=== PATIENT | female | born 1945 | race Caucasian/White ===

== ENCOUNTER 2020-07-18 14:08 | Outpatient (CLI) | payer MEDICARE, SELFPAY ==
[2020-07-22 14:37] LABS: FECFAT Total Specimen Weight 415 g; Fecal Lipids, 24 hr 28 g/24 h (<7)
== END 2020-07-18 14:09 | disposition home or self-care (01) ==
DX: K59.1 Functional diarrhea (principal)
CPT/HCPCS: 82710

== ENCOUNTER 2023-04-23 12:07 | Outpatient (CLI) | payer MEDICARE, SELFPAY ==
--- NOTE | ~2023-04-23 | XR_ITS ---
EXAMINATION: XR chest 2V DATE: 04/23/2023 14:02 INDICATION: Encounter for other preprocedural examination. TECHNIQUE: Frontal and lateral views of the chest were obtained. COMPARISON: None. FINDINGS: There is eventration of anterior right hemidiaphragm. There is mild atelectasis at left brett g base. No pneumonia, pleural effusion, or pneumothorax. The heart size is normal. There are bilatera l shoulder arthroplasties. IMPRESSION: 1. Mild atelectasis at left lung base. Reviewed, dictated and finalized at location E.
--- NOTE | 2023-04-23 13:12 | ECG_ITS ---
Measurements Intervals [place] Rate: 54 P: 34 ID: [id number] QRS: -9 QRSD: 114 T: 36 QT: 445 QTc: 425 Interpretive Statements SINUS BRADYCARDIA WITH FIRST DEGREE AV BLOCK MODERATE INTRAVENTRICULAR CONDUCTION DELAY [110+ ms QRS DURATION] MODERATE VOLTAGE CRITERIA FOR LVH, CONSIDER NORMAL VARIANT [MEETS CRITERIA IN ONE OF: R(aVL), S(V1), R(V5), R(V5/V6)+S(V1)] NO PREVIOUS ECG AVAILABLE FOR COMPARISON Electronically Signed On 04-23-2023 15:06:16 CDT by Kal Nash M.D.
[2023-04-23 14:13] LABS: Hematocrit 39.4 % (37.0-47.0); Hemoglobin 12.5 g/dL (12.0-15.0); Mean Corpuscular HGB Conc 31.7 g/dl (32-36); Mean Corpuscular Hemoglobin 28.7 pg (26-34); Mean Corpuscular Volume 90.6 fl (80-100); Mean Platelet Volume 10.4 fl (7.4-10.4); Platelet Count Result 218 k/mm3 (150-375); Red Blood Count 4.35 M/mm3 (4.2-5.4)
[2023-04-23 14:23] LABS: Anion Gap 9 mmol/L (8-16); Blood Urea Nitrogen 31 mg/dL (7-17); Carbon Dioxide 19 mmol/L (22-30); Chloride 112 mmol/L (98-107); Estimated Glomerular Filt Rate 40; Glucose 80 mg/dL (65-110); Sodium 140 mmol/L (137-145)
[2023-04-23 14:24] LABS: Prothrombin Time 13.2 Seconds (11.1-14.7)
[2023-04-23 14:25] LABS: Partial Thromboplastin Time 27.4 SECONDS (22.3-36.8)
[2023-04-23 15:03] LABS: Appearance Urine Cloudy (Clear); Bacteria Urine 4+ /hpf; Bilirubin Urine Negative (Negative); Blood Urine Negative (Negative); Color Urine Yellow (Yellow); Glucose Urine UA Negative (Negative); Ketones Urine Negative (Negative); Leukocyte Esterase Ur 3+ LEU/UL (Negative); Nitrate Urine Positive (Negative); Protein Urine Negative (Negative); Specific Grav Ur 1.016 (1.001-1.035); Squamous Epithelial Cell Urine Occasional /hpf (Few); Urobilinogen Urine 0.2 mg/dL (<2.0); WBC Clumps Urine Present /HPF; WBC Urine >100 /hpf; pH Urine 5.5 (5.0-9.0)
[2023-04-23 15:08] LABS: Add Urine Microscopic? YES
== END 2023-04-23 12:08 | disposition home or self-care (01) ==
LOC: ANHSURGERY 12:55
PROVIDERS: Visit Provider Neurological Surgery
DX: Z01.818 Encounter for other preprocedural examination (principal); M43.16 Spondylolisthesis, lumbar region
CPT/HCPCS: 36415; 71046; 80048; 81001; 85027; 85610; 85730; 86850; 86900; 86901; 87077; 87086; 87186; 93005

== ENCOUNTER 2023-06-05 01:21 | Day surgery (SDC) | payer MEDICARE, SELFPAY ==
--- NOTE | 2023-04-19 08:33 | PC.NURSE ---
Addendum entered by Lilly Swann RN 04/22/23 12:37: ALL VITAMINS AND SUPPLEMENTS (VITAMIN B12 AND D) - LAST DOSE 04/27/23. Original Note: PRE-OP INSTRUCTIONS, PLEASE READ CAREFULLY Report to the Outpatient Waiting Room, entrance under the green pavilion located off [facility], at time _1030_ on date _05/01/23_. Planned Procedure Time: _1230_. Time changes happen often and if your time is changed the preop area will call you the afternoon before. - You and your visitor will be asked to self-screen and do not enter if you have any COVID symptoms. - A mask is optional within the hospital at this time. Patients may have clear liquids (water, carbonated beverages, clear teas, apple juice) until 3 hours prior to surgery (0930 AM) with a maximum of 20 ounces. - No food from midnight until time of surgery Take the following medications with a SIP of water the morning of surgery: _GABAPENTIN, METOPROLOL & TYLENOL IF NEEDED_ DO NOT STOP ANY OF YOUR OTHER PRESCRIPTION MEDICATIONS PRIOR TO SURGERY ?EXCEPT THE FOLLOWING Medications to discontinue _CELECOXIB, IBUPROFEN PER DR. FAJARDO - CALL OFFICE FOR INSTRUCTIONS_ Medications to discontinue per ANESTHESIA - _CHERRY EXTRACT 3 DAYS PRIOR TO SURGERY, Date to take last dose 04/27/23_ Please no make-up, nail beninese, hairspray, perfume, deodorant, or body powder the day of surgery. No jewelry (including any body piercings) or valuables the day of surgery, leave them at home. Please take a shower or bath the night before, or the morning of, surgery with an antibacterial soap. Wear comfortable, loose fitting clothing. - Jewelry must be removed prior to entering the operating room. Rings and piercings that are not removed may be cut off. - The hospital will not accept responsibility for valuables. - Please leave all valuables, including medications, at home the day of surgery. If you are going home after surgery, a licensed semi driver must drive you home. - NO public transportation without another adult if you receive anesthesia. - We recommend that an adult stay with you for 24 hours following discharge. - We also recommend that you do not drive, make important decision, drink alcoholic beverages, or take any drugs that were not prescribed by your health care provider for at least 24 hours after your discharge time. Follow any additional instructions given to you from your surgeon. If you or anyone in your household have experienced Covid symptoms in the past week, please notify your surgeon or the nurse liaison at the phone number below for possible testing. Telephone instructions given to _PATIENT_and asked if any additional questions and then verbalized understanding. Patient advised to call surgeon office or pre surgery nurse liaison [phone] if any additional questions.
[2023-04-19 08:40] VITALS: BMI 38.2
--- NOTE | 2023-05-28 11:15 | PC.NURSE ---
Report to the Outpatient Waiting Room, entrance under the green pavilion located off [facility], at time ___0900____ on date _06/05/23 . Planned Procedure Time: __1100 . Time changes happen often and if your time is changed the preop area will call you the afternoon before. - You and your visitor will be asked to self-screen and do not enter if you have any COVID symptoms. - A mask is optional within the hospital at this time. Patients may have clear liquids (water, carbonated beverages, clear teas, apple juice) until 3 hours prior to surgery with a maximum of 20 ounces. - No food from midnight until time of surgery - Infants may have breast milk until 4 hours before surgery, formula 6 hours prior to surgery. - Children will be allowed to drink immediately following surgery. If applicable, please bring a bottle or sippy cup to assist with drinking. Juice, water, soda, and popsicles are readily available. For infants on formula, please bring formula the day of surgery. Pacifiers are allowed. Take the following medications with a SIP of water the morning of surgery: __GABAPENTIN, METOPROLOL, & TYLENOL IF NEEDED___ DO NOT STOP ANY OF YOUR OTHER PRESCRIPTION MEDICATIONS PRIOR TO SURGERY ?EXCEPT THE FOLLOWING Medications to discontinue per physician _CELECOXIB & IBUPROFEN PER DR. FAJARDO INSTRUCTIONS_ Date to take last dose Please no make-up, nail mexican, hairspray, perfume, deodorant, or body powder the day of surgery. No jewelry (including any body piercings) or valuables the day of surgery, leave them at home. Please take a shower or bath the night before, or the morning of, surgery with an antibacterial soap. Wear comfortable, loose fitting clothing. Children are encouraged to wear pajamas. - Jewelry must be removed prior to entering the operating room. Rings and piercings that are not removed may be cut off. - The hospital will not accept responsibility for valuables. - Please leave all valuables, including medications, at home the day of surgery. If you are going home after surgery, a licensed rolloff driver must drive you home. - NO public transportation without another adult if you receive anesthesia. - We recommend that an adult stay with you for 24 hours following discharge. - We also recommend that you do not drive, make important decision, drink alcoholic beverages, or take any drugs that were not prescribed by your health care provider for at least 24 hours after your discharge time. For Pediatric surgeries, we recommend two adults accompany the child home. Follow any additional instructions given to you from your surgeon. If you or anyone in your household have experienced Covid symptoms in the past week, please notify your surgeon or the nurse liaison at the phone number below for possible testing. Telephone instructions given to ____PT and asked if any additional questions and then verbalized understanding. Patient advised to call surgeon office or pre surgery nurse liaison [phone] if any additional questions.
[2023-05-28 11:17] VITALS: BMI 38.2
[2023-06-05] VITALS (10 sets, daily range): BP systolic 95–148; BP diastolic 57–89; PULSE 57–79; RESP 10–20; TEMP 36.2–36.8; O2SAT 94–100
--- NOTE | ~2023-06-05 | XR_ITS ---
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 TECHNIQUE: 1 fluoroscopic image of the thoracolumbar junction were obtained during laminectomy with s angela cord stimulator placement. I was not present during the procedure. Fluoroscopy exposure time wa s 16.8 seconds. Air Kerma 14.039 mGy. DAP 0.2783 mGym2. COMPARISON: None FINDINGS: Multiple soft tissue anchors project over the image. Stimulator leads project over the midline in the lower thoracic spine. IMPRESSION: Fluoroscopic documentation of laminectomy with spinal cord stimulator placement. Please refer to the operative note for complete procedural details . Reviewed, dictated and finalized at location K. PAINT SHADER IMPRESSION: Fluoroscopic documentation of laminectomy with spinal cord stimulator placement . Please refer to the operative note for complete procedural details .
[2023-06-05] MEDS: LACTATED RINGERS 1,000 ML 30 ML IV CONT ×2 (10:15→14:27)
--- NOTE | 2023-06-05 11:30 | WPDANESEPPF ---
Anes - Initial Pre Proc Eval Procedure: Operation Date: 06/05/23 11:00 Proposed Procedures p T9 Laminectomy with Placement of Spinal Cord Stimulator and Generator - Bibi Neri MD Date/Time: 06/05/23 11:30 Surgeon: Bibi Neri MD Pre Op Diagnosis: lumbar spondylosis, chronic back pain Patient Data Age: 78 Gender: F Height: 1.65 m Weight: 102.3 kg Last Vital Signs Temp 98.2 F 06/05/23 09:20 Pulse 79 06/05/23 09:20 Resp 20 06/05/23 09:20 BP 146/89 H 06/05/23 09:20 Pulse Ox 100 06/05/23 09:20 O2 Del Method Room Air 06/05/23 09:20 Allergies Allergy/AdvReac Type Severity Reaction Status Date / Time No Known Allergies Allergy Verified 06/05/23 09:58 Home Medications Medication Instructions Recorded Confirmed Type celecoxib 100 mg capsule 200 mg PO DAILY 04/04/23 06/05/23 History cholecalciferol (vitamin D3) 50 50 mcg PO DAILY 04/04/23 06/05/23 History mcg (2,000 unit) capsule colestipol 1 gram tablet 7 g PO BID 04/04/23 06/05/23 History hydrochlorothiazide 12.5 mg tablet 12.5 mg PO DAILY 04/04/23 06/05/23 History mecobalamin (vitamin B12) 1,000 1,000 mcg PO DAILY 04/04/23 06/05/23 History mcg chewable tablet metoprolol tartrate 50 mg tablet 50 mg PO BID 04/04/23 06/05/23 History solifenacin 10 mg tablet 10 mg PO DAILY 04/04/23 06/05/23 History sour thakkar extract 1,000 mg 1,200 mg PO DAILY 04/04/23 06/05/23 History capsule (Tart Thakkar Extract) acetaminophen 650 mg 1,300 mg PO Q8H PRN Pain 04/19/23 06/05/23 History tablet,extended release atorvastatin 40 mg tablet 80 mg DAILY 04/19/23 06/05/23 History benazepril 40 mg tablet 40 mg DAILY 04/19/23 06/05/23 History gabapentin 600 mg tablet 600 mg DAILY 04/19/23 06/05/23 History ibuprofen 200 mg tablet 400 mg Q8H PRN Pain 04/19/23 06/05/23 History Laboratory Tests 06/05/23 10:23 Blood Type A Positive Antibody Screen Pending Patient hx anesthesia problems: none Family hx anesthesia problems: none Results Review: All pre-operative results and documents have been reviewed as part of the pre-operative evaluation. [facility] Past Medical History Medical History (Updated 04/04/23 @ 15:37 by Bibi Neri MD) Chronic low back pain Surgical History Surgical History (Updated 04/04/23 @ 15:02 by Radha Kruse MA) H/O bladder repair surgery (~02/2010) H/O cataract extraction (~2009) H/O hernia repair (~07/09/99) H/O shoulder surgery (~05/08/04) L History of left hip replacement (~11/27/12) History of left shoulder replacement (~02/17/13) History of right knee joint replacement (~05/03/15) History of right shoulder replacement (~07/28/13) Social History Social History (Updated 04/04/23 @ 15:03 by Radha Kruse MA) Smoking status: Never smoker Second hand tobacco smoke exposure: No Alcohol intake: never Substance use: never Substance use type: does not use Lack of Transportation: No Lack of Food: Never True Current Housing: I Have Housing Concerned About Future Housing: No Difficulty Paying Gas/Electric Bills: No Difficulty Paying for Meds: No Currently Unemployed: No Education: High School Diploma/GED Difficulty w/ Childcare or Family Care: No Living arrangements: alone Spiritual care concerns: No Anes - Eval Final PreProcedure Day of Procedure 06/05/23 11:30 Patient weight: obese Heart: regular rate and rhythm Lungs: clear to auscultation Airway: Mallampati scale class II Neurological: alert and oriented Last oral intake: >/= 8 hours ASA classification: III Emergent: no Anesthetic plan: proceed Anesthesia type and monitoring: general ETT and standard monitoring Results Review: All pre-operative results and documents have been reviewed as part of the pre-operative evaluation. Informed Consent: The patient's anesthetic plan and its attendant risks and benefits were discussed with the patient/family/POA. Question
--- NOTE | 2023-06-05 11:40 | PM.IMHP ---
H&P: HPI History of Present Illness Date/Time: 06/05/23 11:40 Chief Complaint: back pain Narrative: Ms. Abarca is a 78-year-old female history of hypertension who was referred by [facility] for spinal cord stimulator placement.? She has a several year history of right-sided low back pain which is present with standing and walking.? She has no significant pain at rest.? She has had a number of treatments over the years including multiple epidural steroid and facet injections which have not provided any long-lasting relief.? She was offered surgery in the past which she declined to pursue.? During the years of her getting epidural steroid injections, she has developed some pain down the front of her legs, worse on the right side, to about the ankle.? She can get some paresthesias in her legs as well.? She denies any weakness.? She recently had a [employer]tr[employer] spinal cord stimulator trial from which she reports is 60-70% improvement in her symptoms.? Of note, she has a bladder stimulator with the generator on the left side. Review of Systems Review of Systems: All systems reviewed & are unremarkable except as noted in HPI and below PMFSH Past Medical History Medical History (Updated 04/04/23 @ 15:37 by Bibi Neri MD) Chronic low back pain Surgical History Surgical History (Updated 04/04/23 @ 15:02 by Radha Kruse MA) H/O bladder repair surgery (~02/2010) H/O cataract extraction (~2009) H/O hernia repair (~07/09/99) H/O shoulder surgery (~05/08/04) L History of left hip replacement (~11/27/12) History of left shoulder replacement (~02/17/13) History of right knee joint replacement (~05/03/15) History of right shoulder replacement (~07/28/13) Social History Social History (Updated 04/04/23 @ 15:03 by Radha Kruse MA) Smoking status: Never smoker Second hand tobacco smoke exposure: No Alcohol intake: never Substance use: never Substance use type: does not use Lack of Transportation: No Lack of Food: Never True Current Housing: I Have Housing Concerned About Future Housing: No Difficulty Paying Gas/Electric Bills: No Difficulty Paying for Meds: No Currently Unemployed: No Education: High School Diploma/GED Difficulty w/ Childcare or Family Care: No Living arrangements: alone Spiritual care concerns: No Meds Home Medications and Allergies Home Medications Medication Instructions Recorded Confirmed Type celecoxib 100 mg capsule 200 mg PO DAILY 04/04/23 06/05/23 History cholecalciferol (vitamin D3) 50 50 mcg PO DAILY 04/04/23 06/05/23 History mcg (2,000 unit) capsule colestipol 1 gram tablet 7 g PO BID 04/04/23 06/05/23 History hydrochlorothiazide 12.5 mg tablet 12.5 mg PO DAILY 04/04/23 06/05/23 History mecobalamin (vitamin B12) 1,000 1,000 mcg PO DAILY 04/04/23 06/05/23 History mcg chewable tablet metoprolol tartrate 50 mg tablet 50 mg PO BID 04/04/23 06/05/23 History solifenacin 10 mg tablet 10 mg PO DAILY 04/04/23 06/05/23 History sour thakkar extract 1,000 mg 1,200 mg PO DAILY 04/04/23 06/05/23 History capsule (Tart Thakkar Extract) acetaminophen 650 mg 1,300 mg PO Q8H PRN Pain 04/19/23 06/05/23 History tablet,extended release atorvastatin 40 mg tablet 80 mg DAILY 04/19/23 06/05/23 History benazepril 40 mg tablet 40 mg DAILY 04/19/23 06/05/23 History gabapentin 600 mg tablet 600 mg DAILY 04/19/23 06/05/23 History ibuprofen 200 mg tablet 400 mg Q8H PRN Pain 04/19/23 06/05/23 History Allergies Allergy/AdvReac Type Severity Reaction Status Date / Time No Known Allergies Allergy Verified 06/05/23 09:58 Vital Signs Vital Signs - 24 hr 06/05/23 09:20 Temperature 98.2 F Pulse Rate 79 Respiratory Rate 20 Blood Pressure 146/89 H Pulse Oximetry 100 Oxygen Delivery Room Air Exam Narrative: Unable to perform bilateral AMANDA due to hip replacements Unless otherwise stated above, the patient's physical exam is as follows: General: -
--- NOTE | 2023-06-05 11:55 | WPDHPUPDATE1 ---
History and Physical Update Update Date/Time: 06/05/23 11:55 History and Physical has been reviewed, including an updated exam of the patient. There are NO changes in the patient's condition. Risks, benefits, and alternatives have been discussed and questions answered. Patient agrees to proceed with procedure.
[2023-06-05] MEDS: ceFAZolin 2 GM/D5W 50 ML 2 GM/50 ML BAG IVPB (12:14)
[2023-06-05] MEDS: BUPIVACAINE/EPINEPHRINE 0.5% 50 ML VIAL 30 ML INFILTRATE (13:02)
[2023-06-05] MEDS: VANCOMYCIN HCL 1,000 MG VIAL 1000 MG TOPICAL (13:03)
--- NOTE | 2023-06-05 14:28 | PM.OP ---
Procedure Note - Brief Procedure Note - Brief Date of procedure: 06/05/23 lumbar spondylosis, chronic back pain Post-op diagnosis: Same Procedure performed: T10 laminotomy for placement of epidural spinal cord stimulator and right gluteal generator Surgeon: Bibi Neri MD Anesthesia: GETA Findings: Successful placement with good positioning on xray Estimated blood loss (mL): 100 Drains: No Packing: No Pathology: None sent Complications: None Condition: Stable Disposition: PACU
--- NOTE | 2023-06-05 14:43 | SUR.PHASEI ---
1443- [employer] rep at bedside to turn on spinal cord stimulator.
[2023-06-05] MEDS: fentaNYL CITRATE INJ (*CRX) 100 MCG/2 ML VIAL 25 MCG IV PUSH ×3 (15:07→15:15)
--- NOTE | 2023-06-05 15:22 | W.PM.PROC2 ---
Procedure Note - Detailed Date of Procedure 06/05/23 Pre-op Diagnosis lumbar spondylosis, chronic back pain Post-op Diagnosis Same Procedure Performed 1. T10 laminotomies for placement of epidural spinal cord stimulator paddle 2. Placement of right gluteal generator 3. Use of C-arm for fluoroscopy Surgeon Bibi Neri MD Requirements Manager [facility] Anesthesia General and Local Description of Procedure The patient was brought to the OR where general anesthesia was induced. The patient was turned prone onto the OR table with Orlin frame. All pressure points were padded. C-arm was used to plan the level of the thoracic incision. A left gluteal incision was also planned for the generator site. The surgical site was prepped and draped in usual sterile fashion. Perioperative antibiotics were given. Local anesthesia was injected into the planned incisions. A 10-blade scalpel was used to open the left gluteal incision. A bovie was used to create a subcutaneous pocket inferiorly. The pocket was packed with a wet Raytec. Next, the thoracic incision was opened with the scalpel, and the soft tissue was dissected with the bovie. The laminae were exposed bilaterally at T10. This was confirmed with the C-arm. A was performed at the superior portion of T10 with the Leksell, high-speed drill, and kerrisons. No significant ligamentum flavum was noted at this level. The laminotomy opening was widened laterally, and the hockey stick was passed into the epidural space to ensure adequate opening. The paddle stimulator was then placed into the epidural space. The placement was noted to be to the left of midline and higher than desired based on the trial xray. Therefore, a second laminotomy was performed at the inferior aspect of T10, leaving a portion of the laminae and ligamentum between the two openings. There was an adhesion present at this level which was with a Woodsen and 3 penfield. The stimulator paddle was then repassed through the inferior opening at T10 with eventual midline placement spanning the T8 and T9 bodies. Anchors were placed into the leads which were attached to the muscle. The leads were tunneled to the gluteal incision. A final xray was obtained to ensure stable placement. The leads were connected to the generator which was then placed into the gluteal pocket. The generator was secured with a silk suture. All incisions were irrigated copiously. Hemostasis was ensured in the thoracic incision with the bipolar and Surgiflo. Stimulon beads were placed into both incisions. The fascia was closed with 0 vicryl. The dermis was closed with 2-0 and 3-0 vicryl. The dermis at the generator site was closed with 2-0 vicryl. The skin was closed in both incisions with 4-0 monocryl. Dermabond was then placed. The patient was returned supine, extubated, and transferred to PACU. Billing codes: 01717, 95326 Estimated Blood Loss -100.0 Drains No Packing No Pathology None sent Complications None Condition Stable Disposition PACU [facility] Billing Surgery - Charge Forward: Surgery Billing
[2023-06-05] MEDS: oxyCODONE HCL (*CRX) 5 MG TAB IR PO (16:27)
[2023-06-05] MEDS: ONDANSETRON HCL ODT 4 MG TABLET PO (17:00)
--- NOTE | 2023-06-05 17:03 | SUR.PHASEII ---
PATIENT ASSISTED WITH DRESSING.
== END 2023-06-05 17:04 | disposition home or self-care (01) ==
PROVIDERS: Visit Provider Neurological Surgery
PROC: (CPT 63685; principal; 2023-06-05 11:00)
DX: M47.816 Spondylosis without myelopathy or radiculopathy, lumbar region (principal); M43.16 Spondylolisthesis, lumbar region; G89.29 Other chronic pain; E66.9 Obesity, unspecified; Z68.37 Body mass index [BMI] 37.0-37.9, adult
CPT/HCPCS: 63685; 63655; 36415; 86850; 86900; 86901; 99199; A9270; C1778; C1787; C1820; J0360; J0690; J1100; J1170; J2405; J2704; J3010; J3370; J7120